=== PATIENT | male | born 1970 | race Caucasian/White ===

== ENCOUNTER 2020-06-26 11:22 | Emergency (ER) | payer MEDICARE, OTHER ==
[~2020-06-26] VITALS: Ht 175.3 cm; Wt 111.1 kg
[~2020-06-26 11:22] MED LIST: Ativan1 MG SL; CALC.25 PO; CLON.2 PO; CLON2 PO; FURO20 PO; HYDACE5325 PO; HYDPAM25 PO; LEVSOD100 PO; NAPR500 PO; OMEP20ER PO; OXYACE5T PO; PROC10 PO; PROM25 PO; RANI150 PO; SUBOXONE 12 MG1 EACH; [UNRECOGNIZED DRUG - OTHER]
[2020-06-26 11:54] LABS: BASOPHILS ABSOLUTE AUTO 0.03 K/mm3 (0.00-0.23); BASOPHILS PERCENT AUTO 1 % (0-2); EOSINOPHILS ABSOLUTE AUTO 0.13 K/mm3 (0.00-0.68); EOSINOPHILS PERCENT AUTO 2 % (0-6); Hematocrit 49.3 % (37.0-53.0); Hemoglobin 17.2 g/dL (13.5-17.5); IMMATURE GRAN ABSOLUTE AUTO 0.03 K/mm3 (0.00-0.10); IMMATURE GRAN PERCENT AUTO 1 % (0-1); LYMPHOCYTES ABSOLUTE AUTO 2.05 K/mm3 (0.84-5.20); LYMPHOCYTES PERCENT AUTO 33 % (21-46); MONOCYTES ABSOLUTE AUTO 0.74 K/mm3 (0.16-1.47); MONOCYTES PERCENT AUTO 12 % (4-13); Mean Corpuscular HGB 34.7 pg (26.0-34.0); Mean Corpuscular HGB Conc 34.9 g/dL (31.5-36.5); Mean Corpuscular Volume 100 fL (80-100); Mean Platelet Volume 9.6 fL (9.1-12.4); NEUTROPHILS ABSOLUTE AUTO 3.32 K/mm3 (1.96-9.15); NEUTROPHILS PERCENT AUTO 53 % (41-73); Platelet Count 241 K/mm3 (150-400); RDW Coefficient Variation 14.6 % (11.7-14.2); Red Blood Cell Count 4.95 M/mm3 (4.30-5.90)
[2020-06-26] MEDS ORDERED: Percocet 7.5-31 EACH PO (11:56)
[2020-06-26] MEDS ORDERED: OXYCODONE-ACET1 EAC2 PO (11:57)
[2020-06-26 12:14] LABS: Alanine Aminotransfer (ALT/SGP 155 U/L (12-78); Albumin, Blood 3.6 g/dL (3.4-5.0); Albumin/Globulin Ratio 0.9 (0.8-1.8); Alk Phos 93 U/L (50-136); Anion Gap 5 mmol/L (6-16); Aspartate Aminotrans (AST/SGOT 112 U/L (12-37); Bilirubin, Total 0.6 mg/dL (0.1-1.0); Blood Urea Nitrogen 10 mg/dL (8-24); Bun/Creatinine Ratio 12.6 (12.0-20.0); CO2, Blood 26 mmol/L (21-32); Calcium, Blood 8.1 mg/dL (8.5-10.1); Chloride, Blood 107 mmol/L (98-108); Creatinine, Blood 0.79 mg/dL (0.60-1.20); Globulin, Blood 3.8 g/dL (2.2-4.0); Glomerular Filtration Rate >60 (60-); Glucose, Blood 94 mg/dL (70-99); Sodium, Blood 138 mmol/L (136-145); Total Protein, Blood 7.4 g/dL (6.4-8.2)
[2020-06-26 12:55] LABS: Magnesium, Blood 1.9 mg/dL (1.6-2.4)
[2020-06-26] MEDS ORDERED: AZIT250 PO (15:39)
[2020-06-26] MEDS ORDERED: METPRE4DP PO (15:39)
[2020-06-26] MEDS ORDERED: ALBU90OI INH (15:39)
== END 2020-06-26 15:48 | disposition home or self-care (01) ==
LOC: ER 11:22
PROVIDERS: Emergency Medicine
DX: J44.0 Chronic obstructive pulmonary disease with (acute) lower respiratory infection (principal); J20.9 Acute bronchitis, unspecified; I10 Essential (primary) hypertension; E11.9 Type 2 diabetes mellitus without complications; F17.200 Nicotine dependence, unspecified, uncomplicated; Z79.899 Other long term (current) drug therapy
CPT/HCPCS: 71046; 80053; 83690; 83735; 83880; 84484; 85025; 93005; 93010; 94640; 96374; 99285-25; G0480; J2930

== ENCOUNTER 2020-10-16 09:09 | Emergency (ER) | payer MEDICARE, OTHER ==
[~2020-10-16] VITALS: Ht 175.3 cm; Wt 108.9 kg
[~2020-10-16 09:09] MED LIST changes: +ALBU90OI INH; +AZIT250 PO; +METPRE4DP PO; +OXYCODONE-ACET1 EAC2 PO; +Percocet 7.5-31 EACH PO
[2020-10-16] MEDS ORDERED: ZADITOR5 M1 BOTHEYES (09:57)
== END 2020-10-16 10:26 | disposition home or self-care (01) ==
LOC: ER 09:09
DX: H57.13 Ocular pain, bilateral (principal); I10 Essential (primary) hypertension; F17.210 Nicotine dependence, cigarettes, uncomplicated; F17.290 Nicotine dependence, other tobacco product, uncomplicated; Z88.5 Allergy status to narcotic agent; Z88.1 Allergy status to other antibiotic agents; Z88.8 Allergy status to other drugs, medicaments and biological substances
CPT/HCPCS: 99282

== ENCOUNTER 2021-01-16 09:55 | Emergency (ER) | payer MEDICARE, OTHER ==
[~2021-01-16] VITALS: Ht 175.3 cm; Wt 108.9 kg
[~2021-01-16 09:55] MED LIST changes: +ZADITOR5 M1 BOTHEYES
== END 2021-01-16 12:37 | disposition home or self-care (01) ==
LOC: ER 09:55
DX: H00.015 Hordeolum externum left lower eyelid (principal); H10.9 Unspecified conjunctivitis; Z88.8 Allergy status to other drugs, medicaments and biological substances; Z88.5 Allergy status to narcotic agent; Z88.1 Allergy status to other antibiotic agents; Z79.899 Other long term (current) drug therapy; Z79.891 Long term (current) use of opiate analgesic; Z79.52 Long term (current) use of systemic steroids; I10 Essential (primary) hypertension; F17.210 Nicotine dependence, cigarettes, uncomplicated; F17.290 Nicotine dependence, other tobacco product, uncomplicated
CPT/HCPCS: 99282; A9270

== ENCOUNTER 2022-03-26 10:21 | Emergency (ER) | payer OTHER, MEDICARE ==
[~2022-03-26] VITALS: Ht 175.3 cm; Wt 122.5 kg
[2022-03-26] MEDS ORDERED: NAPR500 PO (11:18)
[2022-03-26] MEDS ORDERED: LIDO700A20 TOP (11:18)
== END 2022-03-26 11:30 | disposition home or self-care (01) ==
LOC: ER 10:21
DX: S40.011A Contusion of right shoulder, initial encounter (principal); M25.511 Pain in right shoulder; I10 Essential (primary) hypertension; F17.210 Nicotine dependence, cigarettes, uncomplicated; F17.290 Nicotine dependence, other tobacco product, uncomplicated; V89.2XXA Person injured in unspecified motor-vehicle accident, traffic, initial encounter; Z79.52 Long term (current) use of systemic steroids; Z79.899 Other long term (current) drug therapy; Z79.890 Hormone replacement therapy; Z88.5 Allergy status to narcotic agent; Z88.6 Allergy status to analgesic agent; Z88.8 Allergy status to other drugs, medicaments and biological substances
CPT/HCPCS: 73030

== ENCOUNTER → 2023-12-01 | Outpatient (CLI) | payer MEDICARE, OTHER ==
[~2023-12-01] MED LIST changes: +LIDO700A20 TOP
[2023-12-01 14:10] LABS: Stool Occult Bld Immuno 1 Negative (NEGATIVE)
== END | disposition home or self-care (01) ==
LOC: LAB 09:30 → LAB SHORT 09:30
PROVIDERS: Family Medicine
DX: Z12.11 Encounter for screening for malignant neoplasm of colon (principal)
CPT/HCPCS: G0328

== ENCOUNTER 2024-05-01 09:51 | Day surgery (SDC) | payer MEDICARE, OTHER ==
[~2024-05-01] VITALS: Ht 175.3 cm; Wt 122.0 kg
[~2024-05-01 09:51] MED LIST changes: +EPINEPhrine HCl 1 MG/ML 1ML Amp ONE
[2024-05-01] MEDS ORDERED: CeFAZolin Sodium 2,000 MG VIAL ONE (10:53)
[2024-05-01] MEDS ORDERED: Lactated Ringer's 1,000 ML IV ONE ×3 (10:53→14:31)
[2024-05-01] MEDS ORDERED: LOSA25 PO (11:33)
[2024-05-01] MEDS ORDERED: CeFAZolin Sodium 3,000 MG VIAL ONE (11:40)
[2024-05-01] MEDS ORDERED: propofoL 20 ML IV ONE (12:00)
[2024-05-01] MEDS ORDERED: FentaNYL Citrate 50 MCG/ML 2 ML Injection ONE ×2 (12:00→15:00)
[2024-05-01] MEDS ORDERED: Midazolam HCl 1MG / ML 2ML Vial ONE ×2 (12:02→14:33)
[2024-05-01] MEDS ORDERED: Midazolam HCL 1 MG/ML 5MLVIAL ONE (12:02)
[2024-05-01] MEDS ORDERED: Ropivacaine 0.5% HCL/PF 5 MG/ML 30ML Vial ONE (12:52)
--- NOTE | 2024-05-01 13:00 | NUR ---
05/01/[address] [place], [place] [address]y DR NOTIFIED OF TWO SCRATCHES TO R SHOULDER AND SCRATCHES TO RIGHT FOREARM. OK TO PROCEED PER DR ALMONTE
[2024-05-01] MEDS ORDERED: Sugammadex Sodium 200 MG/2ML SDV (100 MG/ML) ONE ×2 (13:58→14:32)
[2024-05-01] MEDS ORDERED: Rocuronium Bromide 10 MG/ML 5ML Injection IV ONE ×2 (13:58→14:08)
[2024-05-01] MEDS ORDERED: Ondansetron HCl 2 MG / ML 2ML Vial ONE (13:58)
[2024-05-01] MEDS ORDERED: Ketorolac Tromethamine 30mg Vial ONE (13:58)
[2024-05-01] MEDS ORDERED: EPINEPhrine HCl 1 MG/ML 1ML Amp XX ONE ×2 (14:10→14:33)
[2024-05-01] MEDS ORDERED: Phenylephrine HCl 100 MCG/ML-NS 10MLSYR (1MG/10ML) ONE (14:19)
[2024-05-01] MEDS ORDERED: HYDROmorphone HCl/Pf 1MG SYR ONE (15:26)
--- NOTE | 2024-05-01 15:58 | NUR ---
05/01/24 1550 Deborah Jimenez MOVED PT TO RECLINER. PT TALKATIVE, EATING AND DRINKING. TOLERATING SNACKS WELL. WARM BLANKETS APPLIED.
[2024-05-01 16:03] VITALS: BP 128/95
== END 2024-05-01 16:52 | disposition home or self-care (01) ==
LOC: ORSCSDS 09:51
PROVIDERS: Orthopaedic Surgery
PROC: 0RBJ4ZZ Excision of Right Shoulder Joint, Percutaneous Endoscopic Approach (ICD-10-PCS; principal; 2024-05-01 12:30)
DX: S46.811A Strain of other muscles, fascia and tendons at shoulder and upper arm level, right arm, initial encounter (principal); W18.30XD Fall on same level, unspecified, subsequent encounter; I10 Essential (primary) hypertension; Z87.891 Personal history of nicotine dependence; F43.10 Post-traumatic stress disorder, unspecified; E66.9 Obesity, unspecified; Z68.39 Body mass index [BMI] 39.0-39.9, adult; Z79.899 Other long term (current) drug therapy; Z85.850 Personal history of malignant neoplasm of thyroid
CPT/HCPCS: 93005; 93010; J0171; J0690; J1171; J1885; J2250; J2371; J2405; J2704; J2795; J3010; J7120